=== PATIENT | female | born 1985 | race African-American/Black ===

== ENCOUNTER 2019-02-22 14:50 | Emergency (ER) | payer SELFPAY ==
[~2019-02-22] VITALS: Ht 167.6 cm; Wt 109.0 kg
[2019-02-22] MEDS ORDERED: ACETAMINOPHEN 500MG TABLET PO ONE (19:30)
[2019-02-22] MEDS ORDERED: IBUPROFEN 800MG TABLET PO ONE (19:30)
[2019-02-22 20:51] VITALS: BP 120/75
== END 2019-02-23 07:08 | disposition home or self-care (01) ==
LOC: ER 14:50
DX: S83.8X2A Sprain of other specified parts of left knee, initial encounter (principal); W10.8XXA Fall (on) (from) other stairs and steps, initial encounter; Y93.89 Activity, other specified; Y92.89 Other specified places as the place of occurrence of the external cause
CPT/HCPCS: 73562; 99283